=== PATIENT | female | born 1980 | race African-American/Black ===

== ENCOUNTER 2025-10-01 10:09 | Outpatient (CLI) | payer OTHER | END 2025-10-01 10:10 | disposition home or self-care (01) | LOC: CSHCP 10:09 | PROVIDERS: ATTEND Internal Medicine Critical Care Medicine | DX: D86.9 Sarcoidosis, unspecified (principal); J44.9 Chronic obstructive pulmonary disease, unspecified | CPT/HCPCS: 94060; 94664; 94726; 94729; 94760 ==